=== PATIENT | male | born 2000 | race Caucasian/White ===

== ENCOUNTER 2022-10-15 17:32 | Inpatient (IN) | payer OTHER, BC ==
[~2022-10-15 17:32] MED LIST: Iopamidol-370 76% 500 ML 1 ML ONE
[2022-10-15 18:07] LABS: #Eosinphils 0.1 thou/uL (0.0-0.7); #Lymphocytes 2.1 thou/uL (1.20-3.40); #Monocytes 0.5 thou/uL (0.11-0.59); #Neutrophils 3.7 thou/uL (1.40-6.50); %Basophils 0.5 % (0.0-1.0); %Lymphocytes 32.6 % (21.0-51.0); %Monocytes 7.6 % (0.0-10.0); %Neutrophils 58.3 % (42.0-75.0); Hemoglobin 15.4 g/dL (14.0-18.0); Mean Corpuscular HGB CONC 34.4 g/dL (32.0-36.0); Mean Corpuscular Hemoglobin 33.3 pg (27.0-31.0); Mean Corpuscular Volume 96.6 fl (78.0-98.0); Mean Platelet Volume 7.8 fL (7.4-10.4); Platelet Count 209 10x3/uL (130-400); RBC Distribution Width 12.3 % (11.5-14.5); Red Blood Cell (RBC) Count 4.62 mill/uL (4.70-6.10); White Blood Cell (WBC) Count 6.3 10x3/uL (4.8-10.8)
[2022-10-15 18:19] LABS: INR-International Normal Ratio 1.2; PTT 23.4 sec (22.9-36.1); Prothrombin Time 15.6 sec (12.0-14.7)
[2022-10-15 18:24] LABS: ALT (SGPT) 33 U/L (8-55); AST (SGOT) 45 U/L (5-34); Albumin 4.2 g/dL (3.5-5.0); Alkaline Phosphatase 62 U/L (40-110); Anion Gap 16 mmol/L (10-20); BUN (Urea Nitrogen) 13 mg/dL (8.9-20.6); Bilirubin, Total 0.8 mg/dL (0.2-1.2); Calc. Creatinine Clearance 0 mL/min (70-130); Calcium 9.2 mg/dL (7.8-10.44); Carbon Dioxide 20 mmol/L (22-29); Chloride 106 mmol/L (98-107); Estimated GFR 70; Globulin 2.3 g/dL (2.4-3.5); Glucose 154 mg/dL (70-105); Potassium 3.6 mmol/L (3.5-5.1); Protein, Total 6.5 g/dL (6.0-8.3); Sodium 138 mmol/L (136-145)
[2022-10-15] MEDS ORDERED: Ondansetron PF 4 MG/2 ML Vial IVP PRN (18:37)
[2022-10-15] MEDS ORDERED: Ipratropium/Albuterol 3 ML NEB NEB PRN (18:37)
[2022-10-15] MEDS ORDERED: TETANUS, DIPHTHERIA TOX,ADULT (TDVAX) 0.5 ML VIAL IM ONE (18:37)
[2022-10-15] MEDS ORDERED: Acetaminophen 325 MG TAB PO SCH (18:45)
[2022-10-15] MEDS ORDERED: Acetaminophen/Codeine 30-300mg Tablet PO SCH (19:00)
[2022-10-15] MEDS ORDERED: Bupivacaine 0.25% 10 ML VIAL ONE (19:05)
[2022-10-15] MEDS ORDERED: Morphine 4 MG/ML VIAL ONE (19:10)
[2022-10-15] MEDS ORDERED: Bacitracin 1 PK ONE (19:35)
[2022-10-15] MEDS ORDERED: Boostrix 0.5 ML (Tdap) VIAL (>/=7 yrs of age) ONE (20:15)
[2022-10-15] MEDS: Morphine 2 MG/ML VIAL SLOW IVP PRN ×2 (21:07→22:35)
[2022-10-15] MEDS: Gabapentin 100 MG CAP PO SCH (21:11)
[2022-10-15] MEDS: Senokot S 8.6-50 MG TAB PO SCH (21:12)
[2022-10-15] MEDS: Sodium Chloride 0.9% 1,000 ML IV SCH (21:20)
[2022-10-15] MEDS: Cyclobenzaprine 10 MG TAB PO PRN (22:15)
[2022-10-15] MEDS: Melatonin 3 MG TAB PO PRN (22:16)
[2022-10-15 23:21] VITALS: BMI 23.7
[2022-10-15] MEDS: Acetaminophen/Codeine 30-300mg Tablet PO SCH (23:34)
[2022-10-15 23:53] LABS: Amphetamine Not Detected (NotDetected); Barbiturates Screen Not Detected (NotDetected); Benzodiazepine Screen Not Detected (NotDetected); Cocaine Metabolite Screen Not Detected (NotDetected); Methadone Not Detected (NotDetected); Methamphetamine Not Detected (NotDetected); Opiate Screen Detected (NotDetected); Oxycodone Screen Not Detected (NotDetected); Phencyclidine (PCP) Not Detected (NotDetected); THC/Cannabinoid Screen Detected (NotDetected); Tricyclic Screen Not Detected (NotDetected)
[2022-10-16] MEDS: Morphine 2 MG/ML VIAL SLOW IVP PRN ×6 (00:15→21:55)
[2022-10-16 01:26] LABS: SARS-CoV-2 NAA Rapid Test Not Detected (NotDetected)
[2022-10-16] MEDS: Sodium Chloride 0.9% 1,000 ML IV SCH (02:20)
[2022-10-16] MEDS: Acetaminophen/Codeine 30-300mg Tablet PO SCH ×3 (05:08→17:19)
[2022-10-16] MEDS: Cyclobenzaprine 10 MG TAB PO PRN ×2 (05:14→21:54)
[2022-10-16 06:41] LABS: Anion Gap 11 mmol/L (10-20); BUN (Urea Nitrogen) 11 mg/dL (8.9-20.6); Calc. Creatinine Clearance 122 mL/min (70-130); Calcium 8.4 mg/dL (7.8-10.44); Carbon Dioxide 23 mmol/L (22-29); Chloride 107 mmol/L (98-107); Estimated GFR 97; Glucose 90 mg/dL (70-105); Potassium 3.7 mmol/L (3.5-5.1); Sodium 137 mmol/L (136-145)
[2022-10-16] MEDS ORDERED: Ibuprofen 200 MG TAB PO PRN (07:45)
[2022-10-16] MEDS ORDERED: Clindamycin/D5W 900 MG in Premix Bag 1 BAG IVPB SCH (08:15)
[2022-10-16] MEDS ORDERED: Gabapentin 300 MG CAP PO SCH (09:30)
[2022-10-16] MEDS: Famotidine 20 MG TAB PO SCH (09:39)
[2022-10-16] MEDS: Senokot S 8.6-50 MG TAB PO SCH ×2 (09:40→20:34)
[2022-10-16] MEDS: Polyethylene Glycol 3350 17 GM Packet PO SCH (09:40)
[2022-10-16] MEDS: Gabapentin 100 MG CAP PO SCH (09:48)
[2022-10-16] MEDS ORDERED: Midazolam HCl 2 mg/2 ml Vial ONE (10:11)
[2022-10-16] MEDS ORDERED: Fentanyl 100 MCG/2 ML VIAL ONE (10:11)
[2022-10-16] MEDS ORDERED: Bupivacaine PF 0.5% 30 ML VIAL ONE (10:12)
[2022-10-16] MEDS ORDERED: Clindamycin/D5W 900 mg/50 ml Premix Bag ONE (10:47)
[2022-10-16] MEDS ORDERED: Ondansetron PF 4 MG/2 ML Vial ONE (11:22)
[2022-10-16] MEDS ORDERED: Bupivacaine HCl 0.5%/Epinephrine 1:200,000/PF 30 ml Vial ONE (11:22)
[2022-10-16] MEDS ORDERED: Dexamethasone 20 MG/5 ML VIAL ONE (11:22)
[2022-10-16] MEDS ORDERED: PROPOFOL 200 MG/20 ML VIAL ONE (11:22)
[2022-10-16] MEDS ORDERED: ePHEDrine 50 MG/ML VIAL ONE (11:22)
[2022-10-16] MEDS ORDERED: Promethazine HCl 25 MG/ML VIAL IM PRN (12:54)
[2022-10-16] MEDS ORDERED: Ondansetron HCl/PF 4 MG/2 ML Vial IVP PRN (12:54)
[2022-10-16] MEDS: Gabapentin 300 MG CAP PO SCH ×2 (14:59→20:33)
[2022-10-16] MEDS: Melatonin 3 MG TAB PO PRN (21:54)
[2022-10-17] MEDS: Acetaminophen/Codeine 30-300mg Tablet PO SCH ×3 (00:18→11:34)
[2022-10-17] MEDS: Morphine 2 MG/ML VIAL SLOW IVP PRN (04:33)
[2022-10-17] MEDS: Gabapentin 300 MG CAP PO SCH (08:48)
[2022-10-17] MEDS: Cyclobenzaprine 10 MG TAB PO PRN (08:48)
[2022-10-17] MEDS: Famotidine 20 MG TAB PO SCH (08:50)
[2022-10-17] MEDS: Senokot S 8.6-50 MG TAB PO SCH (08:50)
[2022-10-17] MEDS: Polyethylene Glycol 3350 17 GM Packet PO SCH (08:50)
[2022-10-17 11:55] VITALS: BP 166/78; TEMP 98
== END 2022-10-17 13:10 | disposition home or self-care (01) | DRG 511 ==
LOC: ERS 17:32 → SURG A 19:12
PROVIDERS: ADMIT Surgery; ATTEND Surgery
PROC: 0HQFXZZ Repair Right Hand Skin, External Approach (ICD-10-PCS; 2022-10-15)
PROC: 0HQDXZZ Repair Right Lower Arm Skin, External Approach (ICD-10-PCS; 2022-10-15)
PROC: 0PSK04Z Reposition Right Ulna with Internal Fixation Device, Open Approach (ICD-10-PCS; principal; 2022-10-16)
PROC: 0PSH04Z Reposition Right Radius with Internal Fixation Device, Open Approach (ICD-10-PCS; 2022-10-16)
DX: S52.201A Unspecified fracture of shaft of right ulna, initial encounter for closed fracture (principal); N17.9 Acute kidney failure, unspecified; S52.91XA Unspecified fracture of right forearm, initial encounter for closed fracture; F17.210 Nicotine dependence, cigarettes, uncomplicated; S51.811A Laceration without foreign body of right forearm, initial encounter; Z20.822 Contact with and (suspected) exposure to COVID-19; Z88.0 Allergy status to penicillin; Z98.890 Other specified postprocedural states; V89.2XXA Person injured in unspecified motor-vehicle accident, traffic, initial encounter; Y92.9 Unspecified place or not applicable
CPT/HCPCS: 12001; 25565; 36415; 70450; 71045; 71260; 72125; 72170; 74177; 80048; 80053; 80306; 85025; 85610; 85730; 86900; 86901; 90471; 90715; 96372; 96374; C1713; C1874; G0390; J1100; J1650; J2250; J2270; J2272; J2405; J2704; J3010; J3490; J7050; Q9967; S0020; U0002